=== PATIENT | male | born 1950 | race Two or more races ===

== ENCOUNTER 2020-02-11 06:12 | Day surgery (SDC) | payer OTHER | END 2020-02-11 13:11 | disposition home or self-care (01) | LOC: AMB-ENDOS 06:12 | PROVIDERS: ATTEND Colon & Rectal Surgery | DX: D12.0 Benign neoplasm of cecum (principal); D12.2 Benign neoplasm of ascending colon; D12.3 Benign neoplasm of transverse colon; K62.1 Rectal polyp; K64.8 Other hemorrhoids; Z20.828 Contact with and (suspected) exposure to other viral communicable diseases ==